=== PATIENT | female | born 1960 | race Caucasian/White ===

== ENCOUNTER 2016-09-24 19:10 | Emergency (ER) | payer OTHER ==
[~2016-09-24] VITALS: Ht 172.7 cm; Wt 75.0 kg
[2016-09-24 19:47] VITALS: BP 168/93; PULSE 80; RESP 22; TEMP 98.6; O2SAT 100
--- NOTE | 2016-09-24 20:49 | PD ---
HPI Chief Complaint: Anxiety Time Seen by Provider: 20:47 Travel History International Travel<30 days: No Contact w/Intl Traveler<30days: No Traveled to known affect area: No History of Present Illness HPI Patient comes in complaining of panic attack. Patient states she has a history of these and this feels similar to her previous panic attacks. Patient states she feels like her rate is racing and has been diaphoretic. Patient states she was seen at different ER for similar about a week ago. Patient states that she feels as though her psychiatrist is weaned her off of her medications too quickly and she may be having withdrawal from them. Patient states she was taking Klonopin and gabapentin. Patient states she last had Klonopin yesterday morning and was taken cold turkey of her gabapentin. Patient states she is not from the area and is uncertain how she ended up in [facility] or how she got here. Patient states that she was in long-term last night and had her car towed secondary to not being able to drive anymore secondary to being out of gas. Patient denies anything making her symptoms better or worse. Denies any chest pain, shortness of breath, fevers, loss change in bowel, abdominal pain, headache, or numbness or tingling anywhere. PFSH Past Medical History Anxiety: Yes Depression: Yes Hypertension: Yes Social History Tobacco Use: No Substance Use: No Allergies-Medications (Allergen,Severity, Reaction): Coded Allergies: Benadryl (Verified Allergy, Unknown, 09/24/16) Review of Systems Except as stated in HPI: all other systems reviewed are Neg Physical Exam Narrative GENERAL: Well-developed, overly nourished, in no acute distress, and non-ill appearing. SKIN: Focused skin assessment warm patient appears mildly diaphoretic. HEAD: Atraumatic. Normocephalic. EYES: Pupils equal and round. EOMI. No scleral icterus. No injection or drainage. ENT: No nasal bleeding or discharge. Mucous membranes pink and moist. NECK: Trachea midline. No JVD. Supple. No nuclear rigidity. CARDIOVASCULAR: Regular rate and rhythm. No murmur appreciated. RESPIRATORY: No accessory muscle use. No respiratory distress. Clear to auscultation. Breath sounds equal bilaterally. MUSCULOSKELETAL: No obvious deformities. No clubbing. No cyanosis. No edema. Full range of motion. NEUROLOGICAL: Awake and alert. No obvious cranial nerve deficits. Motor grossly within normal limits. Normal speech. PSYCHIATRIC: Appropriate mood and affect; insight and judgment normal. Data Data Last Documented VS Vital Signs Date Time Temp Pulse Resp B/P Pulse Ox O2 Delivery O2 Flow Rate FiO2 09/24/16 22:23 100 09/24/16 19:47 98.6 80 22 168/93 Orders Electrocardiogram (09/24/16 20:15) Complete Blood Count With Diff (09/24/16 20:15) Comprehensive Metabolic Panel (09/24/16 20:15) Creatine Kinase (Cpk) (09/24/16 20:15) Prothrombin Time / Inr (Pt) (09/24/16 20:15) Act Partial Throm Time (Ptt) (09/24/16 20:15) Troponin I (09/24/16 20:15) Thyroid Stimulating Hormone (09/24/16 20:15) Urinalysis - C+S If Indicated (09/24/16 20:15) Ct Brain W/O Iv Contrast(Rout) (09/24/16 20:15) Blood Glucose (09/24/16 20:15) Ecg Monitoring (09/24/16 20:15) Iv Access Insert/Monitor (09/24/16 20:15) Cath For Specimen (09/24/16 20:15) Oximetry (09/24/16 20:15) Drug Screen, Random Urine (09/24/16 20:15) Alcohol (Ethanol) (09/24/16 20:15) Tylenol (Acetaminophen) (09/24/16 20:15) Potassium Chloride (Kcl) (09/24/16 22:15) Lorazepam (Ativan) (09/24/16 22:15) Labs Laboratory Tests Test 09/24/16 09/24/16 20:30 20:52 White Blood Count 9.1 TH/MM3 Red Blood Count 4.57 MIL/MM3 Hemoglobin 14.6 GM/DL Hematocrit 43.6 % Mean Corpuscular Volume 95.3 FL Mean Corpuscular Hemoglobin 32.0 PG Mean Corpuscular Hemoglobin 33.5 % Concent Red Cell Distribution Width 13.7 % Platelet Count 240 TH/MM3 Mean Platelet Volume 8.1 FL Neutrophils (%) (Auto) 64.8 % Lymphocytes (%) (Auto) 25.3 % Monocytes (%) (Auto) 7.9 % Eosinophils (%) (Auto) 1.0 % Basophils (%) (Auto) 1.0 % Neutrophils # (Auto) 5.9 TH/MM3 Lymphocytes # (Auto) 2.3 TH/MM3 Monocytes # (Auto) 0.7 TH/MM3 Eosinophils # (Auto) 0.1 TH/MM3 Basophils # (Auto) 0.1 TH/MM3 CBC Comment DIFF FINAL Differential Comment Prothrombin Time 10.4 SEC Prothromb Time International 0.9 RATIO Ratio Activated Partial 25.3 SEC Thromboplast Time Sodium Level 141 MEQ/L Potassium Level 3.1 MEQ/L Chloride Level 104 MEQ/L Carbon Dioxide Level 28.8 MEQ/L Anion Gap 8 MEQ/L Blood Urea Nitrogen 16 MG/DL Creatinine 0.76 MG/DL Estimat Glomerular Filtration 79 ML/MIN Rate Random Glucose 76 MG/DL Calcium Level 8.8 MG/DL Total Bilirubin 0.6 MG/DL Aspartate Amino Transf 28 U/L (AST/SGOT) Alanine Aminotransferase 64 U/L (ALT/SGPT) Alkaline Phosphatase 45 U/L Total Creatine Kinase 98 U/L Troponin I LESS THAN 0.02 NG/ML Total Protein 7.2 GM/DL Albumin 4.2 GM/DL Thyroid Stimulating Hormone 2.730 uIU/ML 3rd Gen Acetaminophen Level LESS THAN 2.0 MCG/ML Ethyl Alcohol Level LESS THAN 3 MG/DL Urine Color YELLOW Urine Turbidity CLEAR Urine pH 6.0 Urine Specific [place] 1.020 Urine Protein TRACE mg/dL Urine Glucose (UA) NEG mg/dL Urine Ketones NEG mg/dL Urine Occult Blood NEG Urine Nitrite NEG Urine Bilirubin NEG Urine Urobilinogen LESS THAN 2.0 MG/DL Urine Leukocyte Esterase NEG Urine RBC 4 /hpf Urine WBC 1 /hpf Urine Squamous Epithelial <1 /hpf Cells Urine Mucus FEW /lpf Microscopic Urinalysis Comment CATH-CULT NOT IND Urine Opiates Screen NEG Urine Barbiturates Screen NEG Urine Amphetamines Screen NEG Urine Benzodiazepines Screen POS Urine Cocaine Screen NEG Urine Cannabinoids Screen NEG MDM Medical Decision Making Medical Screen Exam Complete: Yes Emergency Medical Condition: Yes Interpretation(s) CT the head read by the radiologist shows: Normal examination. EKG reviewed by Dr. Rodas shows sinus rhythm with ventricular rate of 84. No STEMI. Differential Diagnosis Anxiety/panic attack, electrolyte abnormality, acute coronary syndrome, thyroid disorder, UTI, intracranial hemorrhage, CVA, other Narrative Course Patient in no obvious distress upon re-evaluation. All pertinent laboratory/ Radiology result(s) discussed with patient. Discussed patient with Dr. Rodas prior discharge, who is in agreement with plan of care and disposition. Any questions/concerns in reference to patient diagnosis/condition discussed and clarified prior to patient's discharge. Reinforced sheer importance of close follow up with patient's primary physician or primary care clinic. Instructed patient to return to ED immediately, if symptoms return/worsen. Pt showed understanding of above instructions. Further instructions and recommendations were detailed in discharge paperwork. Pt ambulated without difficulty out of ED at discharge. Diagnosis Primary Impression: Hypokalemia Additional Impression: Panic disorder Patient Instructions: General Instructions, Hypokalemia (ED), Panic Disorder ( ED) Additional Instructions: Follow-up with your primary care physician in one to 2 days for reevaluation. Return to the emergency department if symptoms get worse. Disposition: 01 DISCHARGE HOME Condition: Stable Manjeet Ceron Sep 24, 2016 20:49
[2016-09-24 21:15] LABS: AUTOMATED NEUTROPHIL # 5.9 TH/MM3 (1.8-7.7); BASOPHIL # 0.1 TH/MM3 (0-0.2); EOSINOPHIL # 0.1 TH/MM3 (0-0.4); HEMATOCRIT 43.6 % (35.0-46.0); HEMO FLAGS DIFF FINAL; LYMPH % 25.3 % (9.0-44.0); LYMPHOCYTE # 2.3 TH/MM3 (1.0-4.8); MEAN CELL VOLUME 95.3 FL (80.0-100.0); MEAN CORPUSCULAR HGB CONC 33.5 % (32.0-36.0); MONO % 7.9 % (0.0-8.0); NEUT % 64.8 % (16.0-70.0); PLATELET COUNT 240 TH/MM3 (150-450); RED BLOOD COUNT 4.57 MIL/MM3 (4.00-5.30); RED CELL DISTRIBUTION WIDTH 13.7 % (11.6-17.2); WHITE BLOOD COUNT 9.1 TH/MM3 (4.0-11.0)
[2016-09-24 21:16] LABS: BLOOD, URINE NEG (NEG); GLUCOSE,URINE NEG (NEG); KETONE, URINE NEG (NEG); MUCUS URINE FEW /lpf (OCC); NITRITE,URINE NEG (NEG); SQUAMOUS EPITHELIAL CELL URINE <1 /hpf (0-5); URINE COLOR YELLOW (YELLW/STRAW)
[2016-09-24 21:18] LABS: COMMENT (UR) CATH-CULT NOT IND; CULTURE IF INDICATED CATH CULTURE NOT IND
--- NOTE | 2016-09-24 21:20 | RADRPT ---
EXAM DATE/TIME: 09/24/2016 21:06 [place] COMPARISON: No previous studies available for comparison. INDICATIONS : Altered mental status. RADIATION DOSE: 32.57 CTDIvol (mGy) MEDICAL HISTORY : Anxiety. SURGICAL HISTORY : None. ENCOUNTER: Initial ACUITY: 1 day PAIN SCALE: 0/10 LOCATION: cranial TECHNIQUE: Multiple contiguous axial images were obtained of the head. Using automated exposure control and adj ustment of the mA and/or kV according to patient size, radiation dose was kept as low as reasonably a chievable to obtain optimal diagnostic quality images. DICOM format image data is available electro nically for review and comparison. FINDINGS: CEREBRUM: The ventricles are normal for age. No evidence of midline shift, mass lesion, hemorrhage or acute in farction. No extra-axial fluid collections are seen. POSTERIOR FOSSA: The cerebellum and brainstem are intact. The 4th ventricle is midline. The cerebellopontine angle i s unremarkable. EXTRACRANIAL: The visualized portion of the orbits is intact. SKULL: The calvaria is intact. No evidence of skull fracture. CONCLUSION: Normal examination. Hosea Naranjo MD on September 24, 2016 at 21:18 Board Certified Radiologist. This report was verified electronically.
[2016-09-24 21:22] LABS: AMPHETAMINE, URINE NEG (NEG); BARBITURATES, URINE NEG (NEG); COCAINE, URINE NEG (NEG)
[2016-09-24 21:29] LABS: ALT (GPT) 64 U/L (10-53); ANION GAP 8 MEQ/L (5-15); AST (GOT) 28 U/L (15-37); BICARBONATE 28.8 MEQ/L (21.0-32.0); BLOOD UREA NITROGEN 16 MG/DL (7-18); CHLORIDE 104 MEQ/L (98-107); GLOMERULAR FILTRATION RATE 79 ML/MIN (>89); POTASSIUM 3.1 MEQ/L (3.5-5.1); SODIUM (NA) 141 MEQ/L (136-145)
[2016-09-24 21:31] LABS: APTT (PATIENT) 25.3 SEC (24.3-30.1); INTERNATIONAL NORMALIZED RATIO 0.9 RATIO; PROTHROMBIN TIME - PATIENT 10.4 SEC (9.8-11.6)
[2016-09-24 21:40] LABS: ACETAMINOPHEN LESS THAN 2.0 MCG/ML (10.0-30.0); ALKALINE PHOSPHATASE 45 U/L (45-117); CREATINE KINASE 98 U/L (26-192); TOTAL BILIRUBIN ADULT 0.6 MG/DL (0.2-1.0)
[2016-09-24] MEDS ORDERED: LORazepam 1 MG TAB PO ONE (22:15)
[2016-09-24] MEDS ORDERED: POTASSIUM CHLORIDE 20 MEQ CONTROLLED RELEASE TAB PO ONE (22:15)
[2016-09-24 22:23] VITALS: O2SAT 100
[2016-09-25] MEDS ORDERED: HYDR12.56 PO (07:59)
[2016-09-25] MEDS ORDERED: CYMB60CA PO (07:59)
[2016-09-25] MEDS ORDERED: TRAZ100T6 PO (07:59)
[2016-09-25] MEDS ORDERED: ASPI81CH7 CHEW (08:00)
[2016-09-25] MEDS ORDERED: HYDR-3288 PO (08:00)
[2016-09-25] MEDS ORDERED: CLON1 PO (13:38)
--- NOTE | 2016-09-25 15:24 | EKG ---
Date Performed: 09/24/2016 Time Performed: 22:03:13 PTAGE: 56 years EKG: Sinus rhythm POSSIBLE LEFT ATRIAL ENLARGEMENT BORDERLINE ECG NO PREVIOUS TRACING DOCTOR: Fadumo Fong Interpretating Date/Time 09/25/2016 15:22:17
== END 2016-09-24 23:08 | disposition home or self-care (01) ==
LOC: NEDAMB 19:10
DX: E87.6 Hypokalemia (principal); F41.0 Panic disorder [episodic paroxysmal anxiety]; R94.31 Abnormal electrocardiogram [ECG] [EKG]; I10 Essential (primary) hypertension; Z79.899 Other long term (current) drug therapy; Z86.59 Personal history of other mental and behavioral disorders
CPT/HCPCS: 70450; 80053; 80307; 81001; 82550; 84443; 84484; 85025; 85610; 85730; 93005

== ENCOUNTER 2016-09-25 07:38 | Emergency (ER) | payer OTHER ==
[2016-09-25 07:44] VITALS: BP 177/86; PULSE 98; RESP 20; TEMP 98.6; O2SAT 98
[2016-09-25 07:56] VITALS: BP 158/92; PULSE 87; RESP 22; O2SAT 100
[2016-09-25] MEDS ORDERED: CYMB60CA PO (07:59)
[2016-09-25] MEDS ORDERED: HYDR12.56 PO (07:59)
[2016-09-25] MEDS ORDERED: TRAZ100T6 PO (07:59)
[2016-09-25] MEDS ORDERED: ASPI81CH7 CHEW (08:00)
[2016-09-25] MEDS ORDERED: HYDR-3288 PO (08:00)
[2016-09-25] MEDS ORDERED: hydrOXYzine PAMOATE 25 MG CAP PO ONE (08:15)
--- NOTE | 2016-09-25 08:53 | PD ---
HPI Chief Complaint: Anxiety Time Seen by Provider: 08:04 Travel History International Travel<30 days: No Contact w/Intl Traveler<30days: No Traveled to known affect area: No History of Present Illness HPI 56-year-old female presents with feeling anxious and not [facility] check [facility] in here. She denies any thoughts of wanting to hurt her self or anyone else. She states that her friend is in [place] and she doesn't know how to get down there. She states she ended up here after she got arrested for DUI. She states that she has no other concurrent complaints at this time. She states no change since being discharged from here recently. [facility] Past Medical History Anxiety: Yes Depression: Yes Hypertension: Yes Psychiatric: Yes (PTSD, panic attacks) Immunizations Current: Yes Influenza Vaccination: Yes ?: Not Past Surgical History Section: Yes Hysterectomy: Yes Social History Alcohol Use: Yes (weekends) Tobacco Use: Yes Substance Use: No Allergies-Medications (Allergen,Severity, Reaction): Coded Allergies: Benadryl (Verified Allergy, Unknown, 09/24/16) Reported Meds & Prescriptions Reported Meds & Active Scripts Active Reported Aspirin [facility] (Aspirin) 81 Mg Chew 81 Mg CHEW DAILY [place] (Hydrocodone-Acetaminophen) 7.5-325 mg Tab 1 Tab PO Q4H PRN Trazodone (Trazodone HCl) 100 Mg Tablet 100 Mg PO HS Cymbalta DR (Duloxetine HCl) 60 Mg Capdr 60 Mg PO DAILY Hydrochlorothiazide 12.5 Mg Tab 12.5 Mg PO DAILY Review of Systems Except as stated in HPI: all other systems reviewed are Neg Physical Exam Narrative GENERAL: Well-nourished, well-developed patient. Tearful SKIN: Warm and dry. HEAD: Normocephalic and atraumatic. EYES: No injection or drainage. ENT: No nasal drainage noted. NECK: Supple, trachea midline. CARDIOVASCULAR: Regular rate and rhythm RESPIRATORY: No increased effort. No accessory muscle use. NEUROLOGICAL: Awake and alert. Motor and sensory grossly within normal limits. Normal speech. Data Data Last Documented VS Vital Signs Date Time Temp Pulse Resp B/P Pulse Ox O2 Delivery O2 Flow Rate FiO2 09/25/16 11:08 68 20 127/83 100 Room Air 09/25/16 07:44 98.6 Orders Hydroxyzine Pamoate (Vistaril) (09/25/16 08:15) Psych Screen (09/25/16 08:09) MDM Medical Decision Making Medical Screen Exam Complete: Yes Emergency Medical Condition: Yes Medical Record Reviewed: Yes (patient with mild hypokalemia, recent testing from yesterday reviewed) Differential Diagnosis Anxiety, off medication, electrolyte abnormality Narrative Course Patient had labs yesterday. Medically cleared, Mental health screening discussed with the patient. Psychiatric screen ordered. Diagnosis Primary Impression: Panic disorder Marcia Cat MD Sep 25, 2016 08:53
[2016-09-25 11:08] VITALS: BP 127/83; PULSE 68; RESP 20; O2SAT 100
[2016-09-25 13:38] VITALS: BP 134/87; PULSE 74; RESP 20; O2SAT 100
[2016-09-25] MEDS ORDERED: CLON1 PO (13:38)
[2016-09-25 22:04] VITALS: BP 131/67; PULSE 85; RESP 17; O2SAT 97
[2016-09-26 02:41] VITALS: BP 136/68; PULSE 65; RESP 17; O2SAT 99
[2016-09-26 06:13] VITALS: BP 118/75; PULSE 75; RESP 18; O2SAT 98
[2016-09-26 10:00] VITALS: BP 143/91; PULSE 73; RESP 18
[2016-09-26 11:18] VITALS: BP 143/91
== END 2016-09-26 12:32 | disposition home or self-care (01) ==
LOC: NEPE 07:38 → NEPJ 09-26 12:32
DX: F41.0 Panic disorder [episodic paroxysmal anxiety] (principal); I10 Essential (primary) hypertension; Z72.0 Tobacco use; Z86.59 Personal history of other mental and behavioral disorders
CPT/HCPCS: 99283; Q0177